=== PATIENT | female | born 1990 | race Caucasian/White ===

== ENCOUNTER 2016-08-02 10:38 | Emergency (ER) | payer OTHER ==
[~2016-08-02] VITALS: Ht 160 cm; Wt 62.6 kg
[2016-08-02 10:57] VITALS: BP 97/51
--- NOTE | 2016-08-02 11:21 | NUR ---
Patient ambulated to bed 08.
--- NOTE | 2016-08-02 11:35 | NUR ---
PATIENT PRESENTS TO ED WITH C/O WEAKNESS/DIZZINESS X1 WEEK. PT STATES SHE WAS SEEN AT [facility] 4 DAYS AGO FOR SAME S/SX AND D/C W/DX OF DEHYDRATION. PT IS 15 WEEKS W/EDC 01/24/17. DENIES N/V/D; SKIN IS PINK/WARM/DRY; AAOX4 WITH EVEN AND STEADY GAIT; LUNGS CLEAR BL; HR EVEN AND REGULAR; PT DENIES ANY FEVER, CP, SOB, OR COUGH AT THIS TIME; PATIENT STATES ABD CRAMPING PAIN OF 7/10 AT THIS TIME; VSS; PATIENT POSITIONED FOR COMFORT; HOB ELEVATED; BEDRAILS UP X2; BED DOWN. ER MD MADE AWARE OF PT STATUS.
[2016-08-02] MEDS ORDERED: NACL 0.9% 1,000 ML IV ONE (11:40)
[2016-08-02] MEDS ORDERED: ONDANSETRON 4 MG/2 ML VIAL IVP ONE (11:40)
--- NOTE | 2016-08-02 11:50 | NUR ---
US at bedside.
[2016-08-02] MEDS ORDERED: ACETAMINOPHEN EXTRA STRENGTH 500 MG TAB PO ONE (12:40)
--- NOTE | 2016-08-02 13:51 | NUR ---
Dr. Hopkins at bedside to do pelvic exam. Lashanda at bedside.
[2016-08-02 14:15] VITALS: BP 101/61
--- NOTE | 2016-08-02 14:15 | NUR ---
Patient discharged with v/s stable. Written and verbal after care instructions given and explained. Patient alert, oriented and verbalized understanding of instructions. Ambulatory with steady gait. All questions addressed prior to discharge. ID band removed. Patient advised to follow up with PMD. Rx of REGLAN, NITROFURANTOIN given. Patient educated on indication of medication including possible reaction and side effects. Opportunity to ask questions provided and answered.
== END 2016-08-02 14:15 | disposition home or self-care (01) ==
LOC: MED 10:38
DX: O21.0 Mild hyperemesis gravidarum (principal); O26.892 Other specified pregnancy related conditions, second trimester; E86.0 Dehydration; R10.9 Unspecified abdominal pain; Z3A.15 15 weeks gestation of pregnancy
CPT/HCPCS: 36415; 76805; 81001; 84702; 85025; 87070; 87086; 87205; 87210; 87491; 93005; 96361; 96374; 99285; J2405; J7030; Q0092